=== PATIENT | male | born 2000 | race Caucasian/White ===

== ENCOUNTER 2019-02-10 09:54 | Emergency (ER) | payer OTHER ==
[2019-02-10] MEDS ORDERED: KETOROLAC 30 MG/1 ML SDV IVP ONE (10:31)
[2019-02-10] MEDS ORDERED: NS 1,000 ML IV ONE ×2 (10:31)
--- NOTE | 2019-02-10 10:31 | EDPHY ---
H & P Stated Complaint: l lower abd pain ? l flank pain just got back from [facility] Time Seen by Provider: 02/10/19 10:23 HPI/ROS: HPI: This is a 18-year-old male who presents with Chief Complaint: Left flank, left lower quadrant pain Location: Left flank, left lower quadrant Quality: Sharp intermittent Pain Duration: Starting around 8:30 a.m. Approximately 2.5 hours prior to arrival Signs and Symptoms: no fever, no nausea, no vomiting, no hematemesis, no blood in stool, no abdominal bloating, no diarrhea, no back pain, no urinary symptoms , no testicular/groin pain, no indigestion, no chest pain, no shortness of breath Timing: Acute Severity: 04/22 Context: Patient is a student from [employer], returned home from [facility] yesterday, presents with waking up this morning around 8:30 a.m. With left flank, left lower quadrant sharp, intermittent pain. He describes it as moderate intensity. He woke up around 6:30 a.m. And went to use the restroom. He urinated and had a bowel movement without difficulty. No history of kidney stones in the past. Denies any fever, diarrhea, burning with urination, blood in his urine, penile discharge. Modifying Factors: None Comment: ROS: A comprehensive 10 system review of systems is otherwise negative aside from elements mentioned in the history of present illness. MEDICAL/SURGICAL/SOCIAL HISTORY: Medical history: Generally healthy. Does not take any regular medications. Surgical history: Denies Social history: Denies tobacco use. Social alcohol use. Family history noncontributory. CONSTITUTIONAL: Nontoxic-appearing extremely polite and cooperative young adult white male, awake and alert, no obvious distress HEENT: Atraumatic and normocephalic, PERRL, EOMI. Nares patent; no rhinorrhea; no nasal mucosal edema. Tympanic membranes clear. Oropharynx clear, no exudate and moist pink mucosa. Airway patent. No lymphadenopathy. No meningismus. Cardiovascular: Normal S1/S2, regular rate, regular rhythm, without murmur rub or gallop. PULMONARY/CHEST: Symmetrical and nontender. Clear to auscultation bilaterally. Good air movement. No accessory muscle usage. ABDOMEN: Soft, nondistended, moderate left lower quadrant tenderness, no rebound, no guarding, no peritoneal signs, no masses or organomegaly. No CVAT. Bowel Sounds normoactive x4 quadrants EXTREMITIES: 2/2 pulses, strength 5/5, no deformities, no clubbing, no cyanosis or edema. NEUROLOGICAL: no focal neuro deficits. GCS 15. SKIN: Warm and dry, no erythema. no rash. Good capillary refill. Source: Patient Exam Limitations: No limitations - Personal History Current Tetanus Diphtheria and Acellular Pertussis (TDAP): Yes - Medical/Surgical History Hx Asthma: No Hx Chronic Respiratory Disease: No Hx Diabetes: No Hx Cardiac Disease: No Hx Renal Disease: No Hx Cirrhosis: No Hx Alcoholism: No Hx HIV/AIDS: No Hx Splenectomy or Spleen Trauma: No Other PMH: denies - Social History Smoking Status: Never smoked Constitutional: Initial Vital Signs Temperature (C) 36.6 C 02/10/19 10:03 Heart Rate 73 02/10/19 10:03 Respiratory Rate 18 02/10/19 10:03 Blood Pressure 107/82 H 02/10/19 10:03 O2 Sat (%) 96 02/10/19 10:03 O2 Delivery Mode Room Air Allergies/Adverse Reactions: No Known Allergies Allergy (Unverified 02/10/19 10:02) Home Medications: Medication Instructions Recorded NK [No Known Home Meds] 02/10/19 Medical Decision Making - Diagnostics Imaging Results: Imaging Impressions Abdomen/Pelvis CT 02/10/19 10:31 Impression: Moderate constipation. No evidence for nephrolithiasis or hydronephrosis. Results called and discussed with Florencia Kowalski PA-C on February 10, 2019 at 1107 hours. Attention: This CT examination is specifically designed to evaluate patients who are clinically suspected of having acute obstructive uropathy. This examination does not use radiographic contrast, and as such, provides only a limited evaluation of the abdomen, pelvis, and retroperitoneum. If there is further clinical suspicion for pathological conditions other than obstructive uropathy, a complete CT evaluation of the abdomen and pelvis utilizing intravenous, oral, and rectal contrast should be considered. ED Course/Re-evaluation: Vital signs reviewed and stable upon arrival. IV access, laboratory studies, urinalysis, CT abdomen and pelvis scan without contrast ordered Given 1 L normal saline, IV Toradol 30 mg 1055: Laboratory studies reviewed. No signs of leukocytosis/anemia/platelet dysfunction/GENARO/electrolyte imbalance. Urinalysis is unremarkable. 1105: Called by radiologist, Dr. Baez, reports that CT abdomen and pelvis scan shows no stone, no obstruction, no diverticulitis, no perforation, no appendicitis, no enlarged prostate, no gallbladder disease. + moderate stool burden noted. Repeat abdominal exam is soft and nontender. Drinking fluids without difficulty. Advised MiraLax as needed, push fluids, increased activity. Suspect abdominal discomfort is caused by abdominal cramping pain and constipation. This patient was seen under the supervision of my primary supervising physician. I evaluated care for this patient independently. Differential Diagnosis: Flank pain including but not limited to musculoskeletal causes, kidney stone, pyelonephritis, shingles, and intra-abdominal causes such as diverticulitis and appendicitis. - Data Points Laboratory Results: Laboratory Results 02/10/19 10:20 02/10/19 10:20 02/10/19 02/10/19 02/10/19 10:20 10:20 10:20 WBC 6.58 10^3/uL 10^3/uL (3.80-9.50) RBC 5.27 10^6/uL 10^6/uL (4.40-6.38) Hgb 16.6 g/dL g/dL (13.7-17.5) Hct 47.9 % % (40.0-51.0) MCV 90.9 fL fL (81.5-99.8) MCH 31.5 pg pg (27.9-34.1) MCHC 34.7 g/dL g/dL (32.4-36.7) RDW 11.9 % % (11.5-15.2) Plt Count 196 10^3/uL 10^3/uL (150-400) MPV 9.7 fL fL (8.7-11.7) Neut % (Auto) 56.7 % % (39.3-74.2) Lymph % (Auto) 30.5 % % (15.0-45.0) [place] % (Auto) 5.9 % % (4.5-13.0) Eos % (Auto) 5.9 % % (0.6-7.6) Baso % (Auto) 0.8 % % (0.3-1.7) Nucleat RBC Rel Count 0.0 % % (0.0-0.2) Absolute Neuts (auto) 3.73 10^3/uL 10^3/uL (1.70-6.50) Absolute Lymphs (auto) 2.01 10^3/uL 10^3/uL (1.00-3.00) Absolute Monos (auto) 0.39 10^3/uL 10^3/uL (0.30-0.80) Absolute Eos (auto) 0.39 10^3/uL 10^3/uL (0.03-0.40) Absolute Basos (auto) 0.05 10^3/uL 10^3/uL (0.02-0.10) Absolute Nucleated RBC 0.00 10^3/uL 10^3/uL (0-0.01) Immature Gran % 0.2 % % (0.0-1.1) Immature Gran # 0.01 10^3/uL 10^3/uL (0.00-0.10) Sodium 137 mEq/L mEq/L (135-145) Potassium 4.3 mEq/L mEq/L (3.5-5.2) Chloride 103 mEq/L mEq/L (97-110) Carbon Dioxide 26 mEq/l mEq/l (22-31) Anion Gap 8 mEq/L mEq/L (6-14) BUN 16 mg/dL mg/dL (7-23) Creatinine 0.9 mg/dL mg/dL (0.7-1.3) Estimated GFR > 60 Glucose 87 mg/dL mg/dL (70-100) Calcium 9.5 mg/dL mg/dL (8.5-10.4) Urine Color YELLOW Urine Appearance MODERATELY TURBID Urine pH 9.0 H (5.0-7.5) Ur Specific [place] 1.020 (1.002-1.030) Urine Protein NEGATIVE (NEGATIVE) Urine Ketones NEGATIVE (NEGATIVE) Urine Blood NEGATIVE (NEGATIVE) Urine Nitrate NEGATIVE (NEGATIVE) Urine Bilirubin NEGATIVE (NEGATIVE) Urine Urobilinogen NEGATIVE EU EU (0.2-1.0) Ur Leukocyte Esterase NEGATIVE (NEGATIVE) Urine Glucose NEGATIVE (NEGATIVE) Medications Given: Discontinued Medications Sodium Chloride (Ns) 1,000 mls @ 0 mls/hr IV ONCE ONE; Wide Open PRN Reason: Protocol Stop: 02/10/19 10:32 Last Admin: 02/10/19 11:01 Dose: 1,000 mls Sodium Chloride (Ns) 1,000 mls @ 0 mls/hr IV ONCE ONE; Wide Open PRN Reason: Protocol Stop: 02/10/19 10:32 Last Admin: 02/10/19 11:13 Dose: Not Given Ketorolac Tromethamine (Toradol) 30 mg IVP EDNOW ONE Stop: 02/10/19 10:32 Last Admin: 02/10/19 11:01 Dose: 30 mg Departure - Departure Disposition: Home, Routine, Self-Care Clinical Impression: Constipation by delayed colonic transit Condition: Good Instructions: Constipation (ED), High Fiber Diet (ED) Additional Instructions: Consume a minimum of 8-10 glasses of water or electrolyte fluid replacement drinks that include Gatorade, Powerade, Pedialyte. Eat a bland diet for the next 48 hours and then slowly advance as tolerated. Increase physical activity today. Take [id number] MiraLax daily as needed for constipation. Return to the Emergency Room if symptoms do not resolve in the next 72 hours, you spike a fever > 102 F, or experience intractable abdominal pain/nausea/ vomiting. Referrals: FRANDY Kaur,. [Clinic] - 3-4 days, if not improved
[2019-02-10 10:36] LABS: PLATELET COUNT 196 10^3/uL (150-400)
[2019-02-10 11:34] VITALS: BP 101/60
== END 2019-02-10 11:33 | disposition home or self-care (01) ==
DX: K59.01 Slow transit constipation (principal); E86.9 Volume depletion, unspecified
CPT/HCPCS: 96374; J1885